=== PATIENT | female | born 1940 | race Caucasian/White ===

== ENCOUNTER 2019-03-10 05:56 | Day surgery (SDC) | payer MEDICARE, OTHER ==
[~2019-03-10] VITALS: Ht 152.4 cm; Wt 56.4 kg
[2019-03-10] MEDS ORDERED: ALBUTEROL SULFATE 2.5 MG/0.5 ML NEB SOLUTION NEB ONE (05:57)
[2019-03-10] MEDS ORDERED: LIDOCAINE 2% 30 ML JELLY TP ONE (05:57)
[2019-03-10] MEDS ORDERED: LIDOCAINE 4% 50 ML SOLUTION TP ONE (05:57)
[2019-03-10] MEDS ORDERED: BENZOCAINE 20% 50 MCG/SPRAY 57 GM TP ONE (05:57)
[2019-03-10] MEDS ORDERED: SODIUM CHLORIDE 0.9% 1,000 ML IV ONE (06:30)
[2019-03-10] MEDS ORDERED: SIMV-261 PO (07:30)
[2019-03-10] MEDS ORDERED: RANI150T7 PO (07:30)
[2019-03-10] MEDS ORDERED: MONT10TA21 PO (07:30)
[2019-03-10] MEDS ORDERED: KDUR10 PO (07:30)
[2019-03-10] MEDS ORDERED: LISI-660 PO (07:30)
[2019-03-10] MEDS ORDERED: FURO20 PO (07:30)
[2019-03-10] MEDS ORDERED: CETI10TA59 PO (07:30)
[2019-03-10] MEDS ORDERED: DOCU60SY6 PO (07:30)
[2019-03-10] MEDS ORDERED: MIRT15 PO (07:30)
[2019-03-10] MEDS ORDERED: OMEP20 PO (07:30)
[2019-03-10] MEDS ORDERED: FLUT16H NASAL (07:30)
[2019-03-10] MEDS ORDERED: LEVO50 PO (07:30)
[2019-03-10] MEDS ORDERED: IPRA3S NASAL (07:30)
[2019-03-10] MEDS ORDERED: PSEU30TA31 PO (07:30)
[2019-03-10] MEDS ORDERED: OMEG-135 PO (07:30)
[2019-03-10] MEDS ORDERED: ALEN35TA32 PO (07:30)
[2019-03-10] MEDS ORDERED: ASPI-1182 PO (07:30)
[2019-03-10] MEDS ORDERED: BECL10.6 IH (07:30)
[2019-03-10] MEDS ORDERED: MIDAZOLAM HCL 2 MG/2 ML VIAL ONE (07:31)
[2019-03-10] MEDS ORDERED: FentaNYL CITRATE-PF 100 MCG/2 ML VIAL ONE (07:32)
[2019-03-10] MEDS ORDERED: MethylPREDNISolone SOD SUCC 125 MG/2 ML VIAL IVP ONE (08:30)
[2019-03-10] MEDS ORDERED: MethylPREDNISolone SOD SUCC 125 MG/2 ML VIAL ONE (08:42)
[2019-03-10] MEDS ORDERED: OXYGEN THERAPY IH SCH (20:00)
== END 2019-03-10 10:20 | disposition home or self-care (01) ==
LOC: SURGERY 05:56
PROVIDERS: ATTEND Internal Medicine Critical Care Medicine
DX: J38.4 Edema of larynx (principal); B37.0 Candidal stomatitis; I10 Essential (primary) hypertension; E78.5 Hyperlipidemia, unspecified; I25.10 Atherosclerotic heart disease of native coronary artery without angina pectoris; Z98.890 Other specified postprocedural states; Z95.2 Presence of prosthetic heart valve
CPT/HCPCS: 31623; 31624; 71045; 87015; 87070; 87101; 87205; 87206; 87220; 88108; 88312; 93005; J2250; J2930; J3010